=== PATIENT | female | born 1975 | race Two or more races ===

== ENCOUNTER 2017-02-28 16:31 | Emergency (ER) | payer MEDICAID ==
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
== END 2017-02-28 18:33 | disposition home or self-care (01) ==
LOC: ER 16:31
DX: F41.9 Anxiety disorder, unspecified (principal); E07.9 Disorder of thyroid, unspecified
CPT/HCPCS: 99284; 96372; J2060; Z7502